=== PATIENT | male | born 1940 | race Caucasian/White ===

== ENCOUNTER 2017-01-25 08:25 | Inpatient (IN) | payer MEDICARE, OTHER ==
[~2017-01-25] VITALS: Ht 180.3 cm; Wt 85.4 kg
--- NOTE | ~2017-01-25 | DS ---
PATIENT'S NAME: MELCHOR LUJAN [facility] AGE: 76 Y [address] ROOM: [address] [address] LOCATION: GPCU ADMIT DATE: 01/25/2017 Discharge Summary DISCHARGE DATE: 01/27/2017 FAMILY PHYSICIAN: Yariel Kilgore MD ATTENDING PHYSICIAN: Rebecca Reinoso PRIMARY DISCHARGE DIAGNOSIS: Acute inferior ST-elevation myocardial infarction. SECONDARY DISCHARGE DIAGNOSES: 1. Coronary artery disease. 2. History of abdominal aortic aneurysm. 3. Dyslipidemia. 4. Hypertriglyceridemia. 5. Hypertension. 6. Diabetes mellitus, type 2. 7. History of squamous cell carcinoma. 8. Ejection fraction of 50%. PROCEDURE PERFORMED: Selective coronary angiography and percutaneous intervention with an aspiration thrombectomy, as well as a drug-eluting stent placement to the right coronary artery. HOSPITAL COURSE: This is a 76-year-old male, who was transferred from [place], [place] for an acute inferior ST-elevation myocardial infarction. Please see history and physical for full details of admission. The patient was emergently taken to the catheterization suite where he underwent a selective coronary angiography and percutaneous intervention with aspiration thrombectomy and drug-eluting stent placement to the RCA through his right radial artery. Post procedure, he was transferred to the progressive care unit for continued monitoring of his procedure site as well as EKG and postprocedure vital signs. He was placed on guideline-directed medical therapy and monitored post procedure. His right radial artery remained stable without complication. Due to his peripheral arterial disease risk factors, he underwent an KATLYN which had within normal limits results with the right finding of 1.03 and left finding of 1.09. On 01/27/2017, he was found to be in stable condition to be discharged to home. DIAGNOSTIC DATA: Cardiac enzyme evaluation showed an admission evaluation of CPK of 1137, CK-MB of 141.4, and troponin I of 84.1. His enzymes peaked at CPK of 1714, CK-MB of 215, and troponin I of 132.0. Final cardiac enzyme evaluation prior to discharge showed a CPK of 904, CK-MB of 87.6, and a troponin I of 46.4. Lipid evaluation showed a total cholesterol of 86, triglycerides of 269, HDL of 28, and LDL of 5. He had a proBNP of 781, and a hemoglobin A1c of 9.3. Renal function evaluation pre and post-catheterization PATIENT'S NAME: MELCHOR LUJAN [facility] AGE: 76 Y [address] ROOM: [address] [place], [place] [address] LOCATION: GPCU ADMIT DATE: 01/25/2017 Discharge Summary DISCHARGE DATE: 01/27/2017 FAMILY PHYSICIAN: Yariel Kilgore MD ATTENDING PHYSICIAN: Rebecca Reinoso were unchanged with a GFR remaining at 49. DISCHARGE ORDERS: The patient was discharged to home with a cardiac diet of low fat, low salt, and low cholesterol. He has a 10-pound lifting restriction to his right arm for 1 week. He is to follow up with his primary care provider in [address] Reinoso in [place], [place] on 02/12/2017. He is to undergo outpatient cardiac rehabilitation. DISCHARGE MEDICATIONS: 1. Aspirin 81 mg p.o. daily. 2. Crestor 40 mg p.o. daily. 3. Prilosec 20 mg p.o. daily. 4. Coreg 3.125 mg p.o. twice daily. 5. Lisinopril 5 mg p.o. daily. 6. Metformin 1000 mg p.o. twice daily. 7. Nicotine patch 21 mg transdermally daily. 8. Brilinta 90 mg p.o. twice daily. DISPOSITION: The patient was discharged to home in stable condition. He is given discharge education related to his followup appointments. Diet and activity restrictions. New medications and prescriptions as well as medication holding parameters for his beta mati and teaching on how to properly assess pulse rate. TERRI COPELAND APRN FOR MD COOKIE BLISS/carmen /[id number] d: 02/02/[id number] t: 02/18/17819, DISCHARGE SUMMARY
--- NOTE | ~2017-01-25 | HP ---
PATIENT'S NAME: MELCHOR LUJAN [facility] AGE: 76 Y [address] ROOM: [address] [place], [place] [address] LOCATION: GPCU ADMIT DATE: 01/25/2017 History & Physical DISCHARGE DATE: FAMILY PHYSICIAN: PHYSICIAN, UNKNOWN ATTENDING PHYSICIAN: Rebecca Reinoso DATE OF SERVICE: HISTORY OF PRESENT ILLNESS: This is a 76-year-old male with an extensive history of coronary artery disease as well as peripheral arterial disease and history of an abdominal aortic aneurysm. He has history of coronary artery stenting in the past to both his RCA and the LAD. He was last seen by Dr. Shaun Olvera in July of 2016, and at that time had complaints of crescendo angina. He was taken to the catheterization suite and found to have total occlusion of his obtuse marginals, moderate in-stent restenoses of his right coronary artery, and moderate LAD stenosis. No coronary interventions were performed at that time and plans were to proceed with medication therapy and close monitoring. The patient awoke the morning of 01/25/2017, with chest pain. His brother took him to [facility] where he was noted to have ST elevations in leads 2, 3, and aVF. Plan was then made to emergently transfer the patient to [facility] for higher level of care and emergent treatment in our builder's labourer. At this time, the patient is currently status post aspiration thrombectomy and a drug-eluting stent placement to the RCA. Full details of the procedure are listed in the catheterization report. Postprocedure, he was transferred to the progressive care unit for continued monitoring of that procedure site as well as postprocedure vital signs and EKG. At this time, he is chest pain free. He does have some minor complaints of shortness of breath, but he does deny nausea, vomiting, presyncope, or syncope. PAST MEDICAL HISTORY: 1. Coronary artery disease. The patient states he has had 4 myocardial infarctions and has had stenting to his coronary arteries as described in the HPI. 2. History of a 4 cm aortic aneurysm. 3. Dyslipidemia. 4. Hypertension. 5. Diabetes mellitus, type 2. 6. History of squamous cell carcinoma in 2010. 7. Obstructive sleep apnea, per the patient's report, but states he has never had a sleep study. 8. History of duodenal ulcers. 9. History of herniated discs in his back. 10. Hip and hand arthritis. PATIENT'S NAME: MELCHOR LUJAN [facility] AGE: 76 Y [address] ROOM: [address] [place], [place] [address] [facility] ADMIT DATE: 01/25/2017 History & Physical DISCHARGE DATE: FAMILY PHYSICIAN: PHYSICIAN, UNKNOWN ATTENDING PHYSICIAN: Rebecca Reinoso PAST SURGICAL HISTORY: 1. Coronary artery stenting to the RCA and the LAD. 2. Appendectomy. 3. History of a hemothorax in 1983. 4. Back surgery. FAMILY HISTORY: The patient's father had history of heart disease and diabetes. His mother had a history of diabetes and Parkinson. He had a brother with a history of heart disease and diabetes. SOCIAL HISTORY: The patient is a current daily cigarette smoker. He has smoked 1 pack per day for the last 50 years. He also admits to alcohol use on 1 day a week and on those days he will have one drink in total. He denies illicit drug use. HOME MEDICATIONS: 1. Aspirin 81 mg p.o. daily. 2. Imdur 30 mg p.o. daily. 3. Crestor 40 mg p.o. daily. 4. Prilosec 20 mg p.o. daily. 5. Coreg 6.25 mg p.o. twice daily. 6. Lisinopril 10 mg p.o. daily. 7. Metformin 1000 mg p.o. twice daily. MEDICATION ALLERGIES: No known medication allergies. REVIEW OF SYSTEMS: Pertinent positive review of systems as listed in the HPI. All other review of systems evaluated and negative. DIAGNOSTIC DATA: Cardiac enzyme trend since his catheterization show a CPK of 1137, then 1714, then 1171, and finally 904. CK-MB trend of 141.4, then 215, then 129.3, and finally 87.6. Troponin I trend of 84.1, then 132, then 66.8, and finally 46.4. He has a proBNP of 781. CMS evaluation shows sodium of 139, potassium 4.4, BUN of 20, creatinine 1.4, and glucose of 132. Lipid evaluation shows a total cholesterol of 86, triglycerides 269, HDL of 20, and LDL of 5. PHYSICAL EXAMINATION: VITAL SIGNS: Temperature 97.7, pulse 61, respirations 18, blood pressure 128/60, and O2 saturation 95% on room air. The patient weighs 85.4 kilograms. SKIN: [place], warm, and dry. PATIENT'S NAME: MELCHOR LUJAN [facility] AGE: 76 Y [address] ROOM: [place] [address] [facility] ADMIT DATE: 01/25/2017 History & Physical DISCHARGE DATE: FAMILY PHYSICIAN: PHYSICIAN, UNKNOWN ATTENDING PHYSICIAN: Rebecca Reinoso EYES: Sclerae clear. No xanthelasma. ENT: Oral mucosa is pink and moist. No jugular venous distention or carotid bruits. CHEST: Respirations are even and unlabored. LUNGS: Clear to auscultation. Regular rate and rhythm. Normal S1 and S2. ABDOMEN: Soft and nontender. MUSCULOSKELETAL: Gait is normal. EXTREMITIES: Peripheral pulses palpable. No clubbing, cyanosis, or edema. His right radial catheterization site is soft, but slightly tender to palpation. CMS: Within normal limits. PSYCHIATRIC: Alert and oriented. Mood and affect are appropriate. IMPRESSION AND PLAN: Per Dr. Reinoso: 1. Status post acute inferior ST elevated myocardial infarction. He has undergone an aspiration thrombectomy and a drug-eluting stent to the RCA. He denies chest pain this a.m. and his cardiac enzymes are currently trending down. We will evaluate his echocardiogram this a.m. to fully evaluate ejection fraction as well as look for wall motion valvular abnormalities. We will continue his aspirin, Brilinta, beta-mati, and statin. He will need to be on lifelong dual antiplatelet therapy. 2. Coronary artery disease with a history of previous stenting. 3. History of abdominal aortic aneurysm as well as peripheral arterial disease risk factors. We will check an ankle-brachial index. 4. Dyslipidemia with hypertriglyceridemia. We will continue his statin. 5. Hypertension. 6. Diabetes mellitus type 2. We will continue to monitor, evaluate, and treat as appropriate. Thank you for allowing [facility] to interact in the care of the patient. PAULA BURNETT MD DE[facility]/modl /[id number] D: [id number] T: [id number] HISTORY & PHYSICAL
--- NOTE | ~2017-01-25 | CATH ---
Cardiac Diagnostic + PCI Report Demographics Patient Name LE ROCHE Gender Male Date of 1940 Age 76 year(s) Patient Number [id number] Date of Study 01/25/2017 Visit Number [id number] Room Number G6[address] [place] [id number] Ht 180.34 cm Wt 81.65 kg Referring Efstrati[employer] Primary Physician Physician Omar Wu MD Performing Efstratiou Secondary Physician Physician Omar Wu MD Diagnostic Efstratiou Assisting Physician Physician Omar Wu MD Interventional Efstratiou Physician Quality Specialist Physician Omar Wu MD Findings and Conclusions Diagnostic Findings and Conclusion 100% flush occlusion of proximal RCA at a previous stented segment 50% prox LAD 100% small OM Diagnostic Recommendations PCI to RCA Interventional Findings and Conclusion Successful aspiration thrombectomy followed by the deployment of new 4.0x38 ALEX post-dialated to 4.5mm Interventional Recommendations Lifelong DAPT Smoking cessation Procedure Description The patient was brought to the diagnostic cardiac catheterization-EP laboratory in the fasting, non-sedated state. Informed consent was obtained in the written and verbal form after the risks and benefits were explained. The patient had no further questions and agreed to proceed. The planned puncture-incision site(s) were shaved and prepped with ChloraPrep and draped in the usual sterile manner. Conscious sedation, supplemental oxygen, and pain control medications were delivered by a registered nurse under physician guidance. Surface ECG rhythm, blood pressure measurement, and pulse oximetry were monitored throughout the procedure. Arterial access. The access site was infiltrated with lidocaine. The vessel was entered with the Seldinger technique. A sheath was advanced into the vessel and used for catheter placement. Selective left coronary angiography. A catheter was advanced into the left coronary vessel ostium under Fluoroscopic guidance. Contrast was injected by hand. Images were obtained in multiple projections. Selective right coronary angiography. A catheter was advanced into the right coronary vessel ostium under fluoroscopic guidance. Contrast was injected by hand. Images were obtained in multiple projections. Stent Placement: A guiding catheter was used to intubate the vessel. A 0.14 wire was used to cross the lesion. A Drug Eluting Stent was placed. Post placement angiograms were performed. Arterial artery hemostasis was achieved. The patient was transferred to a regular nursing floor via cart accompanied by a nurse. The patient left the laboratory in stable condition. Diagnostic Cath Status: Emergency Interventional Cath Status: Emergency Procedure Procedure Type Diagnostic procedure:Angiography:, Coronary Angios PCI procedure:Drug Eluting Coronary Stent:, RCA Indications: Chest pain and ST wave changes. The procedure was explained in detail to the patient. Risks, complications and alternative treatments were reviewed. Written consent was obtained. Medications Reviewed with Patient prior to Procedure. Angiographic Findings Dominance: Right Cardiac Arteries and Lesion Findings LMCA: Normal (0% Stenosis). LAD: Abnormal.50% prox, patent stent distal myocardial bridge Diag 60% ostialThere is a previous stent on Mid LAD. Lesion on Prox LAD: Proximal subsection.50% stenosis . Lesion on 1st Diag: Ostial.60% stenosis . LCx: Abnormal.80% distal OM 100% Lesion on 1st Ob Rosalind: Ostial.100% stenosis . Lesion on Dist CX: Distal subsection.80% stenosis . RCA: Abnormal.100% proxThere is a previous stent on Prox RCA Proximal subsection. Lesion on Prox RCA: Proximal subsection.100% stenosis 38 mm length reduced to 0%. Pre procedure CHERYL 0 flow was noted. Post Procedure CHERYL III flow was present. The guidewire cross was successful.A poor run off was present.The lesion was diagnosed as a high risk lesion.The lesion showed evidence of thrombus presence and favorable total occlusion.Culprit lesion. Treatment results:Interventional treatment was successful. Comments:successful aspiration with Xpressway catheter Devices used - Whisper Wire .014 x 190. Number of passes: 1. - Xpress-Way Aspiration Catheter. Number of passes: 2. - Emerge Balloon 3.0 x 20. 1 inflation(s) to a max pressure of: 15 manda. - Promus Premier 4.0 x 38 Stent. 1 inflation(s) to a max pressure of: 11 manda. - NC Emerge Balloon 4.5 x 12. 4 inflation(s) to a max pressure of: 16 manda. Coronary Tree Procedure Data Procedure Date Date: 01/25/2017Start: 10:22 AMEnd: 11:20 AM Entry Locations - Retrograde Percutaneous access was performed through the Right Radial artery (Primary location). A 6 Fr sheath was inserted. Hemostasis was successfully obtained using Mechanical Compression. Closure Comments: r band deployed by radha with 15cc air in band. Procedure Medications Order and Administration + + +--------+ + !Time !Medication !Dosage !Route ! + + +--------+ + !01/25/2017 !PAE Radial Cocktail: Heparin 5000 units,! !I.A. ! !10:26 AM !Nitroglycerin 200mcg, Verapamil 3 mg ! ! ! ! !(ACC_3) ! ! ! + + +--------+ + !01/25/2017 !Oxygen !4 l/min !NC ! !10:26 AM ! ! ! ! + + +--------+ + !01/25/2017 !Heparin (ACC_3) !2000 !I.V. bolus! !10:38 AM ! !units ! ! + + +--------+ + !01/25/2017 !Atropine !0.5 mg !I.V. ! !10:51 AM ! ! ! ! + + +--------+ + !01/25/2017 !Integrilin (ACC_7) !20 mg !I.C. ! !10:53 AM ! ! ! ! + + +--------+ + !01/25/2017 !0.9% NaCl !150 ml !I.V. drip ! !10:58 AM ! ! ! ! + + +--------+ + !01/25/2017 !Nitroglycerin ! ! ! !10:59 AM ! ! ! ! + + +--------+ + !01/25/2017 !Heparin (ACC_3) ! !I.V. drip ! !11:10 AM ! ! ! ! + + +--------+ + !01/25/2017 !Gwendolynilinta (Ticagrelor) (ACC_20) !180 mg !P.O. ! !11:11 AM ! ! ! ! + + +--------+ + Devices Used - A6 Fr. BS JR 4 Diag. Catheterwas used for:Right coronary angiography. - A6 Fr. BS JL 3.5 Diag. Catheterwas used for:Left coronary angiography. - A6 Fr. HS Guide Catheterwas used for:RCA Intervention. - A6 Fr. AL1 Guide Catheterwas used for:RCA Intervention. Contrast Material - Isovue [id number] ml Fluoroscopy Time: Diagnostic: 14:36 minutes. Total: 14:36 minutes. Fluoroscopy Dose: Diagnostic: 1381 mGy. Total: 1381 mGy. Estimated Blood Loss: 100 ml. Additional [facility] PCI Information PCI Indication:Immediate PCI for STEMI. Medical History Allergies - No known allergies. Risk Factors The patient risk factors include:prior PCI on 06/11/2016;peripheral arterial disease, obesity, physical activity, hypercholesterolemia, hypertension, family history of premature CAD, orally-treated diabetes mellitus, last creatinine: 1.4 mg/dl, creatinine clearance: 52.65 ml/min, dyslipidemia, Current/Recent(w/in 1 year) tobacco use, prior heart failure and prior MO . Admission Data Admission Date: 01/25/2017 Admission Time: 10:05 AM Admit Source: [facility] Insurance Payors: None. Admission Medications + +------+-----+---------+---------+ + + !Medication !Dosage!Times!Last !Last !Administered !Comments ! ! ! !Per !Delivery !Delivery ! ! ! ! ! !Day !Date !Time ! ! ! + +------+-----+---------+---------+ + + !Aspirin (any) ! ! ! ! ! ! ! + +------+-----+---------+---------+ + + !Beta Zhou ! ! ! ! ! ! ! !(any) ! ! ! ! ! ! ! + +------+-----+---------+---------+ + + !Unfractionated ! ! ! ! ! ! ! !Heparin (any) ! ! ! ! ! ! ! + +------+-----+---------+---------+ + + !Statin (any) ! ! ! ! ! ! ! + +------+-----+---------+---------+ + + Clinical Evaluation Leading to Procedure - The patient's CAD presentation was assessed as: STEMI.The symptom onset was first noted on 01/25/2017 03:00 AM(time was estimated). - The patient's anginal syndrome during the past two weeks was assessed as: Class IV according to the [place] Cardiovascular Society Classification System (CCS). Anti-anginal medications were prescribed during the past two weeks. The medications are: Beta Blockers and Other. Snapshots Hemodynamics Condition: Rest O2 Consumption: Estimated: 239.87Heart Rate: 80 bpm Pressures (mmHg) +-----+ + !Site !Pressure ! +-----+ + !AO !125/69 (94) ! +-----+ + !AO !95/59 (74) ! +-----+ + !AO !110/58 (79) ! +-----+ + Shunts Oxygen Values O2 Capacity 189.04 O2 Consumption 239.87 Signatures dtt: Rebecca Reinoso dtd: 01/25/17 1022 Physician Self Edit
--- NOTE | ~2017-01-25 | ECHO ---
Transthoracic Echocardiography Report (TTE) Demographics Patient Name MELCHOR LUJAN Date of Study 01/26/2017 Patient Number [id number] Visit Number [id number] Date of 1940 Room Number G6308 Gender Male Number Age 76 year(s) Referring Kemar Nelson Breeder Service Technician Bereket Salinas RVT, Physician Jazmin PENALOZA RDCS Physician Interpreting [employer] Administrative Assistant Physician Omar Wu MD Supervising Ordering [facility] MD/MLP Physician Omar Wu MD Nurse Stress Coding Team Lead Conclusions Contractility Score Summary Summary The estimated left ventricular ejection fraction is 50%. Mild septal left ventricular hypertrophy. Diastolic assessment reveals Grade I diastolic dysfunction. Inferior hypokinesis. Posterior hypokinesis. Mildly dilated right ventricle. Normal right ventricular systolic performance. Procedure Type of Study TTE procedure:2D Echocardiogram, M-Mode, Doppler , Color Doppler. Procedure Date Date: 01/26/2017 Start: 07:04 AM Study Location: Inpatient Portable Technical Quality: Fair due to lung interference. Indications:Post PTCA. Patient Status: Routine Rhythm: Sinus bradycardia HR: 57 bpm BP: 122/68 mmHg Allergies - No known allergies. M-Mode/2D Measurements LV Diastolic Dimension: 5.58 cm LV Systolic Dimension: 4.01 cm LV Septum Diastolic: 1.39 cm LV PW Diastolic: 0.94 cm AO Root Dimension: 2.9 cm Cardiac Output: 4.14 l/min AV Cusp Separation: 2 cm RV Diastolic Dimension: 4.2 cm LA volume: 57 ml LVOT: 2.1 cm RV Base: 3.57 cm LVOT VTI: 21 cm RV Mid: 3.35 cm LV Stroke volume: 72.7 ml TAPSE: 2.66 cm TDI-S': 13.6 cm/s Doppler Measurements AV Peak Velocity: 0.9 m/s MV Peak E-Wave: 0.78 m/s AV Peak Gradient: 3.21 mmHg MV Peak A-Wave: 0.89 m/s AV Mean Gradient: 2 mmHg MV E/A Ratio: 0.88 LVOT Peak Velocity: 0.91 m/s MV P1/2t: 70 msec TR Gradient:5.38 mmHg PV Peak Velocity: 0.98 m/s Estimated RAP:5 mmHg PV Peak Gradient: 3.83 mmHg Estimated RVSP: 10 mmHg Estimated PASP: 10.38 mmHg E' Septal Velocity: 0.05 m/s A' Septal Velocity: 0.09 m/s E' Lateral Velocity: 0.07 m/s A' Lateral Velocity: 0.08 m/s Findings Left Ventricle Mild septal left ventricular hypertrophy. Diastolic assessment reveals Grade I diastolic dysfunction. Inferior hypokinesis. Posterior hypokinesis. Right Ventricle Mildly dilated right ventricle. Normal right ventricular systolic performance. Left Atrium Normal left atrial size. There is no evidence of patent foramen ovale or atrial septal defect by color Doppler. Right Atrium Normal right atrial size. IVC measures 1.73 cm with inspiratory collapse. Mitral Valve Normal mitral valve structure and function. Trivial mitral regurgitation by color Doppler. Aortic Valve The aortic valve is mildly sclerotic. Tricuspid Valve Normal tricuspid valve structure and function. Pulmonic Valve Normal pulmonic valve structure and function. Pericardial Effusion No evidence of pericardial effusion. Miscellaneous Visualized portions of the aortic root and ascending aorta appear normal in size. Pleural Effusion No evidence of pleural effusion. Signature dtt: Rebecca Reinoso dtd: 01/26/17 0704 Physician Self Edit
--- NOTE | ~2017-01-25 | ENPV ---
Vascular Lower Arterial Plethysmography Procedure Demographics Patient Name MELCHOR LUJAN Date of Study 01/26/2017 Patient Number [id number] Gender Male Date of 1940 Age 76 Visit Number [id number] Height 71 Weight 180 Number Referring Efstratiou Panayotis Interpreting E[employer]stratiou Panayotis Physician A Physician A Physician Ordering [employer] Panayotis Performance Improvement Specialist Physician A Intelligence Officer Basic Bereket Salinas RVT, RDCS Donnell Mejia RVT, RDCS Conclusions Summary Ankle brachial index on the right is 1.03 no significant arterial disease at rest. Ankle brachial index on the left is 1.09 no significant arterial disease at rest. Procedure Type of Study: Extremities Arteries:Lower Arterial Plethysmography, Ankle/Brachial Indicies. Indications for Study:Peripheral vascular disease. Appropriate Use Criteria:6 Allergies - No known allergies. Patient Status:Routine. Study Location:Inpatient Portable. Technical Quality:Good visualization. Risk Factors - The patient's risk factor(s) include: orally-treated diabetes mellitus, dyslipidemia, obesity, lack of physical activity, arterial hypertension and prior ME . - The patient has a current/recent (within 1 year) tobacco history. - The patient's last creatinine was 1.4 mg/dl. Velocities are measured in cm/s ; Diameters are measured in cm Pressures + +----+ +---------+--------+ + + ! ! !Right ! !Left ! ! ! + +----+ +---------+--------+ + + !Location ! !Pressure !Ratio ! !Pressure !Ratio ! + +----+ +---------+--------+ + + !Ankle PT ! !91 !0.81 ! !122 !1.09 ! + +----+ +---------+--------+ + + !DP ! !115 !1.03 ! !117 !1.04 ! + +----+ +---------+--------+ + + - Brachial Pressure:Right: 112.Left:112. - KATLYN:Right: 1.03.Left: 1.09. Signature dtt: dtd: 01/26/17 0000 Physician Self Edit
[2017-01-25] MEDS ORDERED: ASPIRIN (CHILDR81 MG PO (13:07)
[2017-01-25] MEDS ORDERED: IMDUR30 MG PO (13:08)
[2017-01-25] MEDS ORDERED: PRILOSEC20 MG PO (13:08)
[2017-01-25] MEDS ORDERED: CRESTOR40 MG PO (13:08)
[2017-01-25] MEDS ORDERED: PRINIVIL (ZESTRI5 MG PO (13:09)
[2017-01-25] MEDS ORDERED: COREG 3.1253.125 MG PO (13:09)
[2017-01-25] MEDS ORDERED: GLUCOPHAGE1000 MG PO (13:09)
[2017-01-26 05:58] LABS: ANION GAP 11.4 (10.0-19.0); CALCIUM 7.6 mg/dL (8.5-10.5); CREATININE 1.4 mg/dL (0.6-1.3); POTASSIUM 4.4 mMol/L (3.7-5.1); TOTAL PROTEIN 5.7 g/dL (6.0-8.4)
[2017-01-27 06:05] LABS: ANION GAP 11.2 (10.0-19.0); CALCIUM 8.2 mg/dL (8.5-10.5); CREATININE 1.4 mg/dL (0.6-1.3); POTASSIUM 4.2 mMol/L (3.7-5.1)
[2017-01-27] MEDS ORDERED: NICOTINE PATCH1 EAC1 TRANS (10:39)
[2017-01-27] MEDS ORDERED: BRILINTA90 MG PO (10:44)
== END 2017-01-27 11:40 | disposition disaster alternative care site (69) | DRG 247 ==
LOC: GNTU 08:25 → GPCU 08:25
PROVIDERS: ADMIT Internal Medicine Cardiovascular Disease
DX: I21.19 ST elevation (STEMI) myocardial infarction involving other coronary artery of inferior wall (principal); E11.8 Type 2 diabetes mellitus with unspecified complications; E78.1 Pure hyperglyceridemia; E78.5 Hyperlipidemia, unspecified; I10 Essential (primary) hypertension; I25.10 Atherosclerotic heart disease of native coronary artery without angina pectoris; I25.2 Old myocardial infarction; I73.9 Peripheral vascular disease, unspecified; Z90.49 Acquired absence of other specified parts of digestive tract
CPT/HCPCS: C1725; C1757; C1769; C1874; C1887; C1894; C9606; J0461; J1327; J1644; J2370; J3010; J7030